=== PATIENT | female | born 1995 | race African-American/Black ===

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

== ENCOUNTER 2019-06-07 04:15 | Emergency (ER) | payer MEDICAID ==
[~2019-06-07] VITALS: Ht 162.6 cm; Wt 60.0 kg
[2019-06-07 04:20] VITALS: BP 149/95; Ht 162.6 cm; Wt 60.0 kg
[2019-06-07 04:55] LABS: HCG URINE NEGATIVE (NEGATIVE)
[2019-06-07] MEDS ORDERED: LAMICTAL25 MG PO (05:01)
[2019-06-07] MEDS ORDERED: RISPERDAL1 MG PO (05:02)
== END 2019-06-07 05:06 | disposition home or self-care (01) ==
LOC: D.ER 04:15
PROVIDERS: Family Medicine
DX: Z71.1 Person with feared health complaint in whom no diagnosis is made (principal)

== ENCOUNTER 2020-07-13 16:11 | Emergency (ER) | payer MEDICAID ==
[~2020-07-13] VITALS: Ht 162.6 cm; Wt 88.2 kg
[~2020-07-13 16:11] MED LIST: LAMICTAL25 MG PO; RISPERDAL1 MG PO
[2020-07-13 16:16] VITALS: Ht 162.6 cm; Wt 88.2 kg
[2020-07-13] MEDS ORDERED: PROMETH-CODEIN 65 ML PO (16:19)
[2020-07-13] MEDS ORDERED: PREDNISONE5 MG PO (16:20)
[2020-07-13] MEDS ORDERED: VIBRAMYCIN 100100 MG PO (16:20)
[2020-07-13] MEDS ORDERED: ZYRTEC10 MG PO (19:11)
[2020-07-13] MEDS ORDERED: DURAFLU 325-201 EACH PO (19:11)
[2020-07-13 19:35] VITALS: BP 120/73
== END 2020-07-13 19:36 | disposition home or self-care (01) ==
LOC: D.ER 16:11
DX: J45.901 Unspecified asthma with (acute) exacerbation (principal); J30.2 Other seasonal allergic rhinitis; Z72.0 Tobacco use

== ENCOUNTER 2020-10-04 13:48 | Emergency (ER) | payer MEDICAID ==
[~2020-10-04 13:48] MED LIST changes: +DURAFLU 325-201 EACH PO; +PREDNISONE5 MG PO; +PROMETH-CODEIN 65 ML PO; +VIBRAMYCIN 100100 MG PO; +ZYRTEC10 MG PO
[2020-10-04 13:51] VITALS: Ht 162.6 cm
[2020-10-04] MEDS ORDERED: ALBUTEROL SULF8.5 GM INH (14:42)
[2020-10-04] MEDS ORDERED: PREDNISONE50 MG PO (14:42)
[2020-10-04 14:55] VITALS: BP 132/76
== END 2020-10-04 14:56 | disposition home or self-care (01) ==
LOC: D.ER 13:48
DX: R06.02 Shortness of breath (principal); J45.909 Unspecified asthma, uncomplicated